=== PATIENT | male | born 1995 | race Caucasian/White ===

== ENCOUNTER 2017-06-24 12:21 | Emergency (ER) | payer OTHER ==
--- NOTE | 2017-06-24 12:43 | UC ---
Respiratory Complaint HPI - History of Current Complaint Stated Complaint: COUGH Time Seen by Provider: 06/24/17 12:42 - Allergies/Home Medications Allergies/Adverse Reactions: Allergies Allergy/AdvReac Type Severity Reaction Status Date / Time No Known Allergies Allergy Verified 06/27/15 18:45 PMH/Surg Hx/FS Hx/Imm Hx Other History Of: Negative For: HIV, Hepatitis B, Hepatitis C - Surgical History Surgical History: Yes Surgery Procedure, Year, and Place: ear tubes as infant 1997 - Family History Known Family History: Positive: None - Social History Alcohol Use: None Substance Use Type: Marijuana Substance Use Comment - Amount & Last Used: Twice a week Smoking Status (MU): Former Smoker Type: Cigarettes Amount Used/How Often: 2-3 cig per day Length of Time of Smoking/Using Tobacco: 2 yrs Household Exposure Type: Cigarettes - Immunization History Most Recent Influenza Vaccination: no Vaccination Up to Date: Yes Discharge - Discharge Plan Referrals: Harshil Linton MD [Primary Care Provider] -
[2017-06-24 12:46] VITALS: BP 130/76
--- NOTE | 2017-06-24 13:08 | ED ---
Respiratory - HPI Summary HPI Summary: 21 yr old male with the complaint of coughing. Onset a week ago. The patient has been ill for seven days. He was exposed to his sister who had whooping cough; he states he has been on zithromax for five days already. he complains he has persistent coughing spells. No other complaints. Denies SOB. Denies emesis. He states when he coughs he does cough many times in a row. - History of Current Complaint Chief Complaint: UCRespiratory Stated Complaint: COUGH Time Seen by Provider: 06/24/17 12:42 Pain Intensity: 0 - Allergy/Home Medications Allergies/Adverse Reactions: Allergies Allergy/AdvReac Type Severity Reaction Status Date / Time No Known Allergies Allergy Verified 06/27/15 18:45 PMH/Surg Hx/FS Hx/Imm Hx Endocrine/Hematology History: Denies: Hx Diabetes, Hx Thyroid Disease Cardiovascular History: Denies: Hx Congestive Heart Failure, Hx Deep Vein Thrombosis, Hx Hypertension , Hx Myocardial Infarction, Hx Pacemaker/ICD Respiratory History: Denies: Hx Asthma, Hx Chronic Obstructive Pulmonary Disease (COPD), Hx Lung Cancer, Hx Pneumonia, Hx Pulmonary Embolism GI History: Denies: Hx Gall Bladder Disease, Hx Gastrointestinal Bleed, Hx Ulcer, Hx Urosepsis History: Denies: Hx Kidney Stones, Hx Renal Disease Neurological History: Reports: Hx Seizures - He is not on any medications., Other Neuro Impairments/Disorders - ADH AND ANXIETY Denies: Hx Dementia, Hx Migraine, Hx Transient Ischemic Attacks (TIA) Psychiatric History: Reports: Hx Anxiety, Hx Depression, Hx Bipolar Disorder Denies: Hx Panic Disorder, Hx Schizophrenia - Surgical History Surgery Procedure, Year, and Place: ear tubes as 1997 Infectious Disease History: No Infectious Disease History: Denies: Traveled Outside the [place] in Last 30 Days - Family History Known Family History: Positive: None - Social History Lives: With Family Alcohol Use: None Substance Use Type: Reports: Marijuana Substance Use Comment - Amount & Last Used: Twice a day Smoking Status (MU): Light Every Day Tobacco Smoker Type: Cigarettes Amount Used/How Often: 2-3 cig per day Length of Time of Smoking/Using Tobacco: 2 yrs Review of Systems Constitutional: Negative Negative: Sore Throat, Nasal Discharge Positive: Cough All Other Systems Reviewed And Are Negative: Yes Physical Exam Triage Information Reviewed: Yes Vital Signs On Initial Exam: Initial Vitals Temp Pulse Resp BP Pulse Ox 98.4 F 75 16 130/76 99 06/24/17 12:27 06/24/17 12:27 06/24/17 12:27 06/24/17 12:27 06/24/17 12:27 Vital Signs Reviewed: Yes Appearance: Positive: Well-Appearing, No Pain Distress Skin: Positive: Warm, Skin Color Reflects Adequate Perfusion ENT: Positive: Pharynx normal, TMs normal. Negative: Nasal congestion, Nasal drainage Neck: Positive: Nontender Respiratory/Lung Sounds: Positive: Clear to Auscultation, Breath Sounds Present Cardiovascular: Positive: RRR. Negative: Murmur Abdomen Description: Positive: Nontender Musculoskeletal: Positive: Strength/ROM Intact Neurological: Positive: Sensory/Motor Intact, Alert, Oriented to Person Place, Time, CN Intact II-III Psychiatric: Positive: Normal - [place] Coma Scale Best Eye Response: 4 - Spontaneous Best Motor Response: 6 - Obeys Commands Best Verbal Response: 5 - Oriented Coma Scale Total: 15 Diagnostics - Vital Signs Vital Signs Temp Pulse Resp BP Pulse Ox 06/24/17 12:27 98.4 F 75 16 130/76 99 - Laboratory Lab Statement: Any lab studies that have been ordered have been reviewed, and results considered in the medical decision making process. Disposition - Course Course Of Treatment: 21 yr old male with cough, already treated with z pack, and pertussis swab sent from here. Symptomatic management. - Diagnoses Provider Diagnoses: Cough Discharge - Sign-Out/Discharge Documenting (check all that apply): Discharge - Discharge Plan Condition: Good Disposition: HOME Prescriptions: Benzonatate CAP* [Tessalon 100 MG CAP*] 100 mg PO TID PRN #14 cap PRN Reason: Cough Patient Education Materials: Pertussis (ED) Referrals: Harshil Linton MD [Primary Care Provider] - - Billing Disposition and Condition Condition: GOOD Disposition: HOME
[2017-06-27 18:22] LABS: Bordetella pertussis PCR Positive
--- NOTE | 2017-06-27 18:47 | UC ---
- Progress Note Progress Note: please notify pt of (+) pertussis he was treated properly but cough may persist for weeks to months make sure health dept was called close contacts may need prophylaxis Course/Dx - Diagnoses Provider Diagnoses: Cough Discharge - Sign-Out/Discharge Documenting (check all that apply): Post-Discharge Follow Up - Discharge Plan Condition: Good Disposition: HOME Prescriptions: Benzonatate CAP* [Tessalon 100 MG CAP*] 100 mg PO TID PRN #14 cap PRN Reason: Cough Patient Education Materials: Pertussis (ED) Referrals: Harshil Linton MD [Primary Care Provider] - - Billing Disposition and Condition Condition: GOOD Disposition: HOME
== END 2017-06-24 13:13 | disposition home or self-care (01) ==
LOC: UCCORT 12:21
DX: R05 Cough (principal); F17.210 Nicotine dependence, cigarettes, uncomplicated
CPT/HCPCS: 87798; 99212; G0463

== ENCOUNTER 2019-01-04 13:38 | Emergency (ER) | payer OTHER ==
--- NOTE | 2019-01-04 14:08 | UC ---
Lower Extremity/Ankle HPI - HPI Summary HPI Summary: Rolled right ankle when he was running in his back garden, foot went into a hole and he fell. Not improving despite rest, elevation, and ice, using crutches. Has sprained the right ankle in the past. using acetaminophen for control of pain. - History of Current Complaint Stated Complaint: R ANKLE INJ Time Seen by Provider: 01/04/19 14:02 Hx Obtained From: Patient Onset/Duration: Sudden Onset, Lasting Days - 2 Severity Initially: Moderate Severity Currently: Moderate Aggravating Factor(s): Standing, Ambulation Alleviating Factor(s): Rest, Elevation, Ice - Risk Factors Gout Risk Factors: Negative DVT Risk Factors: Negative Septic Arthritis Risk Factor: Negative - Allergies/Home Medications Allergies/Adverse Reactions: Allergies Allergy/AdvReac Type Severity Reaction Status Date / Time No Known Allergies Allergy Verified 01/04/19 14:04 Home Medications: Home Medications Acetaminophen [Acetaminophen Extra Strength] 1,000 mg PO Q6H PRN 01/04/19 [ History Confirmed 01/04/19] PMH/Surg Hx/FS Hx/Imm Hx Previously Healthy: Yes Other History Of: Negative For: HIV, Hepatitis B, Hepatitis C - Surgical History Surgical History: Yes Surgery Procedure, Year, and Place: ear tubes as infant 1997 - Family History Known Family History: Positive: None - Social History Occupation: Employed Full-time Lives: With Family Alcohol Use: None Substance Use Type: Marijuana Substance Use Comment - Amount & Last Used: Twice a day Smoking Status (MU): Light Every Day Tobacco Smoker Type: Cigarettes Amount Used/How Often: 2-3 cig per day Length of Time of Smoking/Using Tobacco: 2 yrs Household Exposure Type: Cigarettes - Immunization History Most Recent Influenza Vaccination: no Vaccination Up to Date: Yes Review of Systems All Other Systems Reviewed And Are Negative: Yes Constitutional: Positive: Negative Skin: Positive: Negative Eyes: Positive: Negative ENT: Positive: Negative Respiratory: Positive: Negative Cardiovascular: Positive: Negative Gastrointestinal: Positive: Negative Genitourinary: Positive: Negative Motor: Positive: Decreased ROM Neurovascular: Positive: Negative Musculoskeletal: Positive: Arthralgia Neurological: Positive: Negative Psychological: Positive: Negative Is Patient Immunocompromised?: No Physical Exam Triage Information Reviewed: Yes Appearance: Well-Appearing, Pain Distress - moderate ENT: Positive: Normal ENT inspection Respiratory: Positive: Lungs clear, Normal breath sounds Cardiovascular: Positive: RRR, No Murmur Musculoskeletal Exam: Other - -+ swelling of the lateral and medial malleolar areas, with swelling through the proximal foot. Musculoskeletal: Positive: ROM Limited @ - right ankle with decreased plantar and dorsi-flexion. Decreased eversion., Other: - No bony tenderness in the metatarsals, normal subtalar joint. Neurological: Positive: Alert, Muscle Tone Normal, Other: - foot warm and well perfused. Psychological Exam: Normal Skin Exam: Normal Diagnostics - Radiology No standard instances Radiology Interpretation Completed By: Radiologist Summary of Radiographic Findings: Soft tissue swelling, no acute osseous injury , small joint effusion. Dr. Simone martinez. Lower Extremity Course/Dx - Course Course Of Treatment: RICE an immobilization. - Differential Dx/Diagnosis Differential Diagnosis/HQI/PQRI: Fracture (Closed), Sprain, Strain Provider Diagnosis: Moderate right ankle sprain Discharge ED - Sign-Out/Discharge Documenting (check all that apply): Patient Departure All imaging exams completed and their final reports reviewed: Yes - Discharge Plan Condition: Stable Disposition: HOME Patient Education Materials: Ankle Sprain (ED) Forms: *Work Release Referrals: No Primary Care Phys,NOPCP [Primary Care Provider] - Additional Instructions: Continue use of crutches, and ice and elevation. You have a referral to Dr. Reina, orthopedist, for evaluation. - Billing Disposition and Condition Condition: STABLE Disposition: Home
[2019-01-04 14:11] VITALS: BP 117/59
[2019-01-04] MEDS ORDERED: Ibuprofen TAB* 600 MG PO ONE (14:17)
== END 2019-01-04 14:49 | disposition home or self-care (01) ==
LOC: UCCORT 13:38
DX: S93.401A Sprain of unspecified ligament of right ankle, initial encounter (principal); F17.210 Nicotine dependence, cigarettes, uncomplicated; W17.2XXA Fall into hole, initial encounter; Y92.9 Unspecified place or not applicable
CPT/HCPCS: 99211; A9270-GY; G0463